=== PATIENT | female | born 1985 | race Caucasian/White ===

== ENCOUNTER 2017-06-02 16:12 | Emergency (ER) | payer BC ==
[2017-06-02 16:46] VITALS: BP 133/89
--- NOTE | 2017-06-02 16:47 | UC ---
Neck Pain HPI - HPI Summary HPI Summary: onset of pain in the right paraspinal muscles today after tunring her head sharply. Has had wry neck since then, with decreased ability to turn to the left. No paresthesias or weakness. Did have a headache earlier today, returning again now. She has used heat without much relief, no analgesics used. 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 No previous neck injury. Occasional sore right scapular area. - History of Current Complaint Chief Complaint: UCUpperExtremity Stated Complaint: NECK PAIN Time Seen by Provider: 06/02/17 16:44 Hx Obtained From: Patient Hx Last Menstrual Period: 05/29/2017 ?: No Onset/Duration Of Injury/Symptoms: Hours - 7 Timing: Constant Onset/Duration: Sudden Onset Severity: Moderate Character: Aching, Stiff Aggravating Factors: Position, Movement Alleviating Factors: Heat Associated Signs & Symptoms: Positive: Headache Related History: Other - has chills and arthralgias diffusely today. No contact with flu, has not had a flu shot. - Allergies/Home Medications Allergies/Adverse Reactions: Allergies Allergy/AdvReac Type Severity Reaction Status Date / Time Penicillins Allergy Mild Rash Verified 06/02/17 16:44 PMH/Surg Hx/FS Hx/Imm Hx Cardiovascular History: Other - pre-eclampsia in Other Cardiovascular History: pre-eclampsia in Other History Of: Negative For: HIV, Hepatitis B, Hepatitis C, Anticoagulant Therapy - Surgical History Surgical History: None - Family History Known Family History: Positive: Hypertension Negative: Cardiac Disease, Diabetes, Renal Disease - Social History Occupation: Employed Full-time Lives: With Family Alcohol Use: Rare Substance Use Type: None Smoking Status (MU): Never Smoked Tobacco - Immunization History Most Recent Influenza Vaccination: 04/21 Most Recent Tetanus Shot: n/a Most Recent Pneumonia Vaccination: n/a Review Of Systems Constitutional: Positive: Chills - onset today; decreased appetite., Fatigue Skin: Positive: Negative Eyes: Positive: Negative ENT: Positive: Other - no hx of thyroid enlargement. Respiratory: Positive: Negative Cardiovascular: Positive: Negative Gastrointestinal: Positive: Negative Genitourinary: Positive: Negative Musculoskeletal: Positive: Myalgia - cervical spine. Neurological: Positive: Headache All Other Systems Reviewed And Are Negative: Yes Physical Exam Triage Information Reviewed: Yes Appearance: Well-Appearing, Pain Distress - moderate., Obese Vital Signs: Initial Vital Signs Temp 99.1 F 06/02/17 16:38 Pulse 107 06/02/17 16:38 Resp 16 06/02/17 16:38 BP 133/89 06/02/17 16:38 Pulse Ox 99 06/02/17 16:38 Vital Signs Reviewed: Yes Eyes: Positive: Conjunctiva Clear ENT: Positive: Pharynx normal Neck: Positive: Tenderness @ - right paraspinal muscles. ROM in cervical spine decreased if FF to 45 degrees, rotation to the left limited to 45 degrees. Normal shoulder shrug., Other: - ? mild enlargment of the right lobe of the thyroid. Thyroid asymmetrical, non-tender. Respiratory: Positive: Lungs clear, Normal breath sounds Cardiovascular Exam: Normal Cardiovascular: Positive: RRR, No Murmur Musculoskeletal: Positive: ROM Limited @ - cervical spine, as above Neurological: Positive: Alert, Muscle Tone Normal, Other: - No pronator drift. 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 DTR's in UE 1+ Psychological Exam: Normal Skin Exam: Normal Neck Pain Course/Dx - Course Course Of Treatment: muscle relaxants for wry neck. Observe--possible onset of flu like symptoms. Follow up with PMD re possible thyroid nodule on the right. - Differential Dx/Diagnosis Differential Dx/HQI/PQRI: Dystonia, Sprain, Strain, Torticollis, Trauma Provider Diagnoses: acute right paracervical muscle strain. possible flu brewing (myalgias/chills). possible right thyroid lobe enlargement. Discharge - Discharge Plan Condition: Stable Disposition: HOME Prescriptions: Cyclobenzaprine TAB* [Flexeril 10 MG TAB*] 10 mg PO BID PRN #20 tab PRN Reason: Spasms - Neck Patient Education Materials: Spasmodic Torticollis (ED) Forms: *Work Release Additional Instructions: Use muscle relaxants as needed, being mindful that they can be sedating and cause fatigue. Use before bed is most helpful. Sleep with good neck support, and continue use of heat to the muscles of the neck. You might be on the verge of fly (muscle spasms and chills)--there is some influenza in the community. Follow up with your primary doctor for evaluation of possible enlargement of the right thyroid lobe. The usual assessment of this includes an ultrasound scan of the thyroid and a check of your thyroid hormone levels.
[2017-06-02] MEDS ORDERED: Ibuprofen TAB* 400 MG PO ONE (17:04)
== END 2017-06-02 17:25 | disposition home or self-care (01) ==
LOC: UCEAST 16:12
DX: S16.1XXA Strain of muscle, fascia and tendon at neck level, initial encounter (principal); X50.0XXA Overexertion from strenuous movement or load, initial encounter; Y93.9 Activity, unspecified; Y92.9 Unspecified place or not applicable; Y99.9 Unspecified external cause status
CPT/HCPCS: 99212; A9270-GY; G0463

== ENCOUNTER 2017-10-24 06:04 | Day surgery (SDC) | payer BC ==
[~2017-10-24 06:04] MED LIST: Buffered Lidocaine 0.9% SYRIN* 5 ML/SYR SYRINGE INTRADERM ONE; Dexamethasone IV* 4 MG/ML 1 ML (4 MG) IV SLOW PU ONE; Famotidine TAB* 20 MG PO ONE
[2017-10-24] MEDS ORDERED: Dexamethasone IV* 4 MG/ML 1 ML (4 MG) ONE (06:19)
[2017-10-24] MEDS ORDERED: Famotidine TAB* 20 MG ONE (06:19)
[2017-10-24] MEDS ORDERED: Buffered Lidocaine 0.9% SYRIN* 5 ML/SYR SYRINGE ONE (06:19)
[2017-10-24] MEDS ORDERED: Clindamycin 900 MG IVPREMIX(* 900 MG/50 ML SDV IV ONE (06:20)
[2017-10-24] MEDS ORDERED: Bupivacaine 0.25% SDV* 30 ML ONE (07:01)
[2017-10-24] MEDS ORDERED: Midazolam* 1 MG/ML 5 ML VIAL (5 MG) ONE (07:11)
[2017-10-24] MEDS ORDERED: fentaNYL* 50 MCG/ML 5 ML VIAL (250 MCG VIAL) ONE (07:11)
[2017-10-24] MEDS ORDERED: Atracurium* 10 MG/ML 10 ML VIAL ONE (07:11)
[2017-10-24] MEDS ORDERED: Ketorolac INJ* 30 MG/ML 1 ML VIAL ONE (07:16)
[2017-10-24] MEDS ORDERED: Ondansetron INJ* 2 MG/ML VIAL ONE (07:16)
[2017-10-24] MEDS ORDERED: Propofol* 10 MG/ML 20 ML BTL IV PUSH ONE (07:16)
[2017-10-24] MEDS ORDERED: oxyCODONE/Acetamin 5/325 MG* TAB PO PRN (07:58)
[2017-10-24] MEDS ORDERED: DiMENhydriNATE IV* 50 MG/ML VIAL IV PUSH PRN (07:58)
[2017-10-24] MEDS ORDERED: Naloxone* 0.4 MG/ML 1 ML VIAL IV PRN (07:58)
[2017-10-24] MEDS ORDERED: Ondansetron INJ* 2 MG/ML VIAL IV PRN (07:58)
[2017-10-24] MEDS ORDERED: HYDROmorphone INJ* 1 MG/ML CARPUJECT SYRINGE IV PRN (07:58)
[2017-10-24] MEDS ORDERED: Scopolamine 1.5 mg* PATCH TRANSDERM PRN (07:58)
[2017-10-24] MEDS ORDERED: fentaNYL* 50 MCG/ML 2 ML VIAL (100 MCG VIAL) IV PRN (07:58)
[2017-10-24] MEDS ORDERED: EPHEDrine (Pressors)* 50 MG/ML VIAL ONE (08:01)
[2017-10-24] MEDS ORDERED: Phenylephrine INJ* 10 MG/ML 1 ML VIAL (10 MG) ONE (08:06)
--- NOTE | 2017-10-24 08:47 | BRIEFOPN ---
Brief Operative Note - Surgery Procedures: Procedures Pre-OP Diagnoses: Abdominal pain Post-op Diagnosis: same Procedure: Diagnostic laparoscopy, OLI, appendectomy Surgeon: Neena Asst: JERED Teague Anethesia: WINSTON Foley EBL: minimal IVF: minimal crystalloid Specimen: appendix Drains: none Findings adhesions, periappendiceal lymphadenopathy Complications: None
[2017-10-24] MEDS ORDERED: oxyCODONE/Acetamin 5/325 MG* TAB ONE (09:33)
[2017-10-24 10:36] VITALS: BP 115/77
--- NOTE | 2017-10-24 12:34 | OP ---
CC: Dr. Paulo Osei; [facility] OPERATIVE REPORT: DATE OF OPERATION: 10/24/17 DATE OF : 81 SURGEON: Wilmer Chaudhary MD DRYING MACHINE OPERATOR: Mounika Teague NP ANESTHESIOLOGIST: Jovi Foley MD ANESTHESIA: General anesthesia. PRE-OP DIAGNOSIS: Abdominal pain. POST-OP DIAGNOSIS: Abdominal pain. OPERATIVE PROCEDURE: Diagnostic laparoscopy, lysis of adhesions, and appendectomy. ESTIMATED BLOOD LOSS: Minimum blood loss. FLUIDS: Minimal crystalloid fluid given. SPECIMENS: Appendix. DRAINS: None. FINDINGS: Adhesions in the pelvis and periappendiceal lymphadenopathy. COMPLICATIONS: None. DESCRIPTION OF PROCEDURE: The patient was identified in the preoperative area. Consent was signed. She was marked and taken to the operating room and placed on the operating table in supine position. Preoperative antibiotics were given. Sequential devices were placed on bilateral lower extremities. General anesthesia was induced. The patient's abdomen was prepped and draped in a standard surgical fashion. Time-out was performed. Folds of the umbilicus were elevated anteriorly and a Veress needle was attempted to be inserted into the abdominal cavity. We were unable to do this and ended up doing a cut-down procedure. The Veres s needle just did not seem to enter into the abdomen into the preperitoneal space that did not insufflate. Cut-down procedure was performed infraumbilically, deepened down to the anterior fascia, which was incised and then through the peritoneum. A 5-mm trocar was inserted into the abdomen, was allowed to insufflate to a pressure of 15 mmHg. The patient tolerated the insufflation well. Lapar oscope was inserted through this. There was no evidence of injury from the trocar insertion or from the Veress needle attempt. So, there was no evidence of violation into the peritoneal cavity. A 5-mm trocar was then placed in the left lower quadrant. Camera was shifted over to this and the umbilica l incision was upsized to a 12-mm trocar. Additional 5-mm trocar was then placed in the suprapubic a tarun. Review of the abdomen showed no free fluid, small bowel appeared intact. The patient was placed in a right side up. The cecum was identified. There were adhesions to the mid portion of the cecum to t he anterior abdominal wall. Some of these were lysed with scissors. We then identified the terminal ileum and ran the small bowel retrograde for approximately 3 feet. There was no evidence Meckel's d iverticulum or any signs of Crohn's. The appendix was identified during this time and it was elongat ed and adhered to the retroperitoneum. The patient was placed in a Trendelenburg and reviewed both left and right ovaries. There were adhesi ons to the sigmoid colon to the ovary and to the fimbriae and to the uterus. These were taken down s harply with scissors. Ovaries appeared intact without lesion as did the uterus. There was no eviden ce of diverticula in the short segment of sigmoid colon that we could see. Attention was then turned towards the appendix. Sharp dissection was carried out of the lateral abdo haresh wall and also retroperitoneum and so the appendix could be brought up into the midline. A wind ow was made at the base of the appendix and a 45-mm hood GI stapler device was fired across this at th e base of the appendix to healthy tissue. I did not need a clip at the distal end of the staple just before I cut the staple line. The mesentery was taken with cautery until we were down just to the main portion of the appendiceal a rtery. This was taken with the 45-mm elise GI stapling device. Appendix was placed in endoscopic retr ieval bag and brought out through the umbilical port site. Review of the abdomen showed no bleeding, no enteric contents. We then put the patient back to neutral position and closed the anterior fasci a at the umbilical port site with a Weck closure device using a 0 Polysorb suture. The abdomen was a llowed to collapse. Trocars removed under direct vision and all 3 skin incisions were reapproximated with 4-0 Monocryl subcuticular sutures followed by Steri-Strips and sterile dressing. The patient t olerated the procedure well, was awoken up in the OR, and transferred to the PACU in stable condition . [id number]/[facility] #: [id number]
== END 2017-10-24 10:39 | disposition home or self-care (01) ==
LOC: OR 06:04
PROVIDERS: ATTEND Surgery
DX: K35.80 Unspecified acute appendicitis (principal); K66.0 Peritoneal adhesions (postprocedural) (postinfection); E03.9 Hypothyroidism, unspecified; E66.9 Obesity, unspecified
CPT/HCPCS: 81025; 88304; A9270-GY; C1776; J1100; J1885; J2250; J2405; J2704; J3010

== ENCOUNTER 2017-11-02 11:20 | Emergency (ER) | payer BC ==
--- OUTSIDE RECORDS SUMMARY | 2017-11-02 11:52 | XMS REPORT ---
:1985 External Reference #:[id number] Author Organization indico Address [address] [facility] [address] [place] [address] Phone [phone] Care Team Providers Name Role Phone Paulo Osei MD Primary Care Physician Unavailable Payers Type Date Identification Numbers Payment Provider Subscriber Commercial Policy Number: [id number] [employer] Julio Pena PayID: [id number] [address] [address] [place] [address] Problems Description No Information Social History Type Date Description Comments Marital Status Lives With Family Occupation Currently Working ETOH Use Occasionally consumes alcohol Smoking Patient has never smoked Recreational Drug Use Denies Drug Use Exercise Type/Frequency Does not exercise Allergies, Adverse Reactions, Alerts Date Description Reaction Status Severity Comments 10/17/2017 Penicillin active Medications Medication Date Status Form Strength Qnty SIG Indications Ordering Provider Levothyroxine Active Tablets 25mcg 1 by Unknown Sodium 00 mouth every day Zantac 150 Active Tablets 150mg 1 by Unknown Maximum Strength 00 mouth twice a day Vital Signs Date Vital Result Comment 11/01/2017 Heart Rate 98 /min Respiratory Rate 16 /min Body Temperature 99.3 F 10/18/2017 Height 65 inches 5'5" Weight 202.00 lb Heart Rate 68 /min BP Systolic 120 mmHg BP Diastolic 80 mmHg Respiratory Rate 16 /min Body Temperature 98.1 F BMI (Body Mass Index) 33.6 kg/m2 Results Test Date Test Result H/L Range Note Laboratory test 10/24/2017 Surgical Pathology SEE RESULT BELOW 1 finding 1 SEE RESULT BELOW Name: KATHY PENA : [address]: Wilmer Chaudhary MD Acct: [id number] Unit: [id number] AGE: 32 Location: OR Re10/24/17 SEX: F Status: DEP [facility] SPEC: [id number] LILIBETH: 10/24/[address]: Wilmer Chaudhary MD REQ: [id number] RECD: 10/24/17 STATUS: SOUT _ ORDERED: LEVEL 3 FINAL DIAGNOSIS Appendix, appendectomy: -- Acute appendicitis and bita-appendicitis. PRE-OPERATIVE DIAGNOSIS Other specified diseases of appendix. GROSS DESCRIPTION The specimen is received in formalin labeled, Appendix, and consists of a 9.1 x 0.7 cm vermiform appendix with abundant attached mesoappendix. The serosa is predominantly smooth hood-pink with a few focal fibromembranous adhesions. The lumen measures up to 0.4 cm and contains a small amount of fecal material and hemorrhagic debris. The mucosa is glistening hood-pink with rare focal hemorrhage and the wall thickness averages 0.1 cm. Car Blocker sections, one cassette. Signed (signature on file) Ann Abdul MD [address] [facility] OF REPORT DEPARTMENT OF PATHOLOGY, [address] [place] [address] Julio Batres M.D. Director [facility] # [id number] Procedures Date CPT Code Description Status 10/24/2017 42624 Laparoscopy, Surgical, Appendectomy Completed 10/24/2017 21272 Laparoscopy, Surgical, Appendectomy Completed Encounters Type Date Location Provider CPT E/M Dx Office Visit 10/18/2017 11:45a [facility] [place] [address] K38.8 [facility] Plan of Care No Information Available
--- OUTSIDE RECORDS SUMMARY | 2017-11-02 11:53 | XMS REPORT ---
:1985 External Reference #:[id number] Author Organization [facility] Address [address] [place] [address] Phone [phone] Care Team Providers Name Role Phone Paulo Osei MD Care Team Information Experience Design Director Unavailable Paulo Osei MD Primary Care Physician Unavailable Payers Type Date Identification Numbers Payment Provider Subscriber Commercial Effective: Policy Number: BC/BS Of ABDOULAYELatesha Pena 2014 [id number] PayID: [id number] [address] [address] [place] [address] Problems Date Description Provider Status Onset: 11/29/2011 Common cold Dc Pruitt M.D. Active Family History Date Family Member(s) Problem(s) Comments General Unremarkable, Parents, Grandparents And Sibs ALL A+W Social History Type Date Description Comments Smoking Patient has never smoked Allergies, Adverse Reactions, Alerts Date Description Reaction Status Severity Comments 05/16/2002 Penicillin active Medications Medication Date Status Form Strength Qnty SIG Indications Ordering Provider Levothyroxine 06/07 Active Tablets 25mcg 30tabs 1 by mouth Aurea C. 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 Juma Pruitt M.D. 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 M.D. 12/25 unable to /2006 attend school. may return tomorrow if better. Entex Pse 06/08 Hx 30units 1PO bid Miguel T. prn Head Rodolfo, - Congestion M.D. 08/11 Benzamycin 06/25 Hx 46gm apply to Lu Topical Gel /2002 area bid Kelle, - after GRINDING OPERATOR 08/11 washing Zithromax 08/18 Hx 250mg 6units 2 Tabs Day Miguel T. /2002 1 Rodolfo, - M.D. 08/11 Tab qd Days 2 Thru 5 Robitussin ac 08/18 Hx 4Oz 1-2 TSP PO Paulo F. Q4H prn Farnaz - M.DLilliana 08/11 Humberto Goins 06/24 Hx 100mg 30units 1-2 PO tid prn Cough [place], - Afnp-C 07/04 Physical Therapy 05/16 Hx Treatment Miguel T. And Rodolfo, - Evaluation M.D. 08/18 LT Knee Strain Cyclobenzaprine Hx Tablets 10mg 1 by mouth Unknown HCL /0000 three - times a 10/09 day needed Immunizations CPT Code Status Date Vaccine Lot # [id number] Given 06/05/2017 Influenza vac quadrivalent preservative free 3yrs [id number] and up [address] Given 01/29/2003 MMR Virus Immunization 36301 Given 11/15/1999 Hepatitis B Immunization, [place]-19 Years 90726 Given 06/21/1999 Hepatitis B Immunization, -19 Years 40051 Given 05/17/1999 Hepatitis B Immunization, [place]-19 Years 68249 Given 05/17/1999 Td Immunization, For Use In Individuals 7 Years Or Older 20663 Given 12/07/1988 Oral Poliovirus Immunization 21796 Given 12/07/1988 DTP Immunization 03256 Given 04/08/1986 MMR Virus Immunization Vital Signs Date Vital Result Comment 10/10/2017 BP Systolic 120 mmHg BP Diastolic 80 mmHg Heart Rate 72 /min Body Temperature 98.3 F Height 65 inches 5'5" Weight 211.00 lb BMI (Body Mass Index) 35.1 kg/m2 06/05/2017 BP Systolic 120 mmHg BP Diastolic 80 mmHg Heart Rate 80 /min Body Temperature 98.6 F Height 65 inches 5'5" Weight 213.00 lb BMI (Body Mass Index) 35.4 kg/m2 08/25/2014 BP Systolic 120 mmHg BP Diastolic 80 mmHg Heart Rate 68 /min Body Temperature 98.3 F Respiratory Rate 18 /min Height 65 inches 5'5" Weight 208.00 lb BMI (Body Mass Index) 34.6 kg/m2 06/26/2012 BP Systolic 110 mmHg BP Diastolic 72 mmHg Heart Rate 72 /min Body Temperature 97.9 F Height 65 inches 5'5" Weight 207.00 lb BMI (Body Mass Index) 34.4 kg/m2 11/29/2011 BP Systolic 120 mmHg BP Diastolic 80 mmHg Heart Rate 72 /min Body Temperature 98.1 F Respiratory Rate 16 /min O2 % BldC Oximetry 98 % Height 65 inches 5'5" Weight 193.00 lb BMI (Body Mass Index) 32.1 kg/m2 06/06/2011 BP Systolic 120 mmHg BP Diastolic 76 mmHg Heart Rate 90 /min Body Temperature 99.8 F Height 65 inches 5'5" Weight 197.00 lb BMI (Body Mass Index) 32.8 kg/m2 07/19/2010 BP Systolic 118 mmHg BP Diastolic 82 mmHg Heart Rate 74 /min Body Temperature 97.4 F Respiratory Rate 16 /min Height 65 inches 5'5" Weight 198.00 lb BMI (Body Mass Index) 32.9 kg/m2 05/31/2010 BP Systolic 120 mmHg BP Diastolic 80 mmHg Heart Rate 60 /min Body Temperature 98.1 F Height 65 inches 5'5" Weight 193.00 lb BMI (Body Mass Index) 32.1 kg/m2 12/25/2006 BP Systolic 98 mmHg BP Diastolic 66 mmHg Heart Rate 66 /min Body Temperature 98.5 F Weight 158.00 lb 09/07/2006 BP Systolic 110 mmHg BP Diastolic 78 mmHg Heart Rate 82 /min Respiratory Rate 15 /min 08/06/2006 BP Systolic 108 mmHg BP Diastolic 72 mmHg Heart Rate 96 /min Body Temperature 99.9 F Weight 163.00 lb 12/15/2005 BP Systolic 118 mmHg BP Diastolic 70 mmHg Heart Rate 72 /min Weight 165.00 lb 08/11/2004 BP Systolic 120 mmHg BP Diastolic 68 mmHg Heart Rate 76 /min Weight 168.00 lb 06/08/2004 BP Systolic 120 mmHg BP Diastolic 70 mmHg Heart Rate 66 /min Body Temperature 96.7 F Weight 170.00 lb 06/25/2003 BP Systolic 120 mmHg BP Diastolic 80 mmHg Heart Rate 68 /min Weight 158.00 lb 01/29/2003 BP Systolic 138 mmHg BP Diastolic 74 mmHg Heart Rate 72 /min Body Temperature 99.6 F Height 65 inches 5'5" Weight 150.00 lb BMI (Body Mass Index) 25.0 kg/m2 08/18/2002 BP Systolic 92 mmHg BP Diastolic 60 mmHg Body Temperature 97.2 F Weight 150.00 lb Weight Percentile 82nd 06/24/2002 BP Systolic 102 mmHg BP Diastolic 70 mmHg Body Temperature 98.2 F Weight 157.00 lb Weight Percentile 87th 05/16/2002 BP Systolic 110 mmHg BP Diastolic 80 mmHg Weight 159.00 lb Weight Percentile 88th 12/11/2000 Weight 140.00 lb 02/09/2000 BP Systolic 110 mmHg BP Diastolic 70 mmHg Heart Rate 88 /min Height 64.75 inches 5'4.75" Weight 133.00 lb BMI (Body Mass Index) 22.8 kg/m2 Height Percentile 61 % Results Test Date Test Result H/L Range Note Anti-Thyroid Antibodies 10/02/2017 Thyroid Peroxidase (Tpo) 530 IU/mL High 0-34 1 Screen Ab Thyroglobulin Antibody 23.4 IU/mL High 0.0-0.9 1, 2 Laboratory test finding 10/02/2017 TSH 3.84 mIU/L 0.50-6.00 Laboratory test finding 07/04/2017 TSH 1.97 mIU/L 0.50-6.00 Laboratory test finding 06/05/2017 Free T4 1.09 ng/dL 0.75-1.54 TSH 7.89 mIU/L High 0.50-6.00 3 Influenza A&B-fma 08/25/2014 Influenza A NEGATIVE Influenza B NEGATIVE Urine Culture And 10/29/2013 Urine Culture (SEE NOTE) 4 Sensitivities Laboratory test finding 08/01/2012 Throat Beta Strep Culture (SEE NOTE) 5 Ua - Micro (Fma) 12/25/2006 Appearance CLEAR Color YELLOW Glucose NEGATIVE Bilirubin NEGATIVE Ketones TRACE SP Grav 1.020 Blood NEGATIVE LMP: 11/30/06 PH 5.0 Protein NEGATIVE Urobil 0.2 Nitrite NEGATIVE Leukocytes (Fma/CMC/Centrex) 1+ Hyaline - /Lpf Granular - /Lpf WBC (Fma,Centrex) 25-30 RBC 0-2 Mucus SMALL AMOUNT /Lpf Epith OCC /Lpf Bacteria 1+ /Hpf Amorphous - /Lpf Crystals, Fluid (Fma/CMC/CTX) - Z#Comments - Complete Blood Count 08/06/2006 WBC 9.1 x10\\S\\3/uL 3.6-9.6 6 Gran# 7.9 x10\\S\\3/uL High 1.5-7.2 6 Gran% 86.3 % High 42.2-75.2 6 HCT 40 % 36-50 6 HGB 13.5 g/dL 12.1-17.2 6 Lymph# 0.7 x10\\S\\3/uL 0.7-4.9 6 Lymph% 7.6 % Low 20.5-51.1 6 MCH 29.7 pg 27.6-33.3 6 MCV 88.0 fL 82.2-97.4 6 MCHC 33.8 g/dL 33.0-35.5 6 Mo# 0.6 x10\\S\\3/uL 0.1-0.9 6 Mo% 6.1 % 1.7-9.3 6 MPV 9.2 fL 7.4-10.4 6 PLT 154 x10\\S\\3/uL 150-400 6 RBC 4.56 x10\\S\\6/uL 3.90-5.70 6 RDW 12.5 % 11.6-13.7 6 Comprehensive Metabolic Prof 08/06/2006 Albumin 4.5 g/dL 3.8-5.5 6 Alk. Phos. 42 U/L 30-110 6 Alt (SGPT) 15 U/L 7-35 6 Ast (Sgot) 17 U/L 5-34 6 BUN 11 mg/dL 6-26 6 Calcium 9.3 mg/dL 8.6-10.2 6 Chloride 96 mEq/L 94-112 6 Creatinine 1.0 mg/dL 0.6-1.4 6 Carbon Dioxide 24 mEq/L 21-32 6 Glucose 106 mg/dL High 70-105 6 Sodium 141 mEq/L 134-149 6 Total Bilirubin 1.5 mg/dL High 0.2-1.3 6, 7 Total Protein 7.4 g/dL 6.3-8.1 6 Potassium 3.4 mEq/L Low 3.6-5.5 6, 8 Globulin 2.9 g/dL 2.0-4.8 6 A/G Ratio 1.6 Calc 0.6-2.2 6 BUN/Creat Ratio 11.6 Calc 8.0-36.0 6 Total And Direct Bili 08/06/2006 Direct Bilirubin 0.6 mg/dL 0.0-0.6 6 Indirect Bilirubin 0.89 0.10-1.00 6 Laboratory test 07/15/2005 Misc GLUCOSE,CHOLESTEROL See Image finding Report Laboratory test 05/16/2003 Throat - Beta NEGATIVE Final finding Strep Ua - Non Micro 01/29/2003 Appearance CLEAR LT YELLOW ([facility]) Glucose NEGATIVE Bilirubin NEGATIVE Ketones NEGATIVE SP Grav 1.010 Blood NEGATIVE PH 7.0 Protein NEGATIVE Urobil 0.2 Nitrite NEGATIVE Leukocytes NEGATIVE Laboratory test finding 01/29/2003 Comments LMP: 01-03-03 Ua - Non Micro (Fma New) 02/11/2000 Appearance CLEAR YELLOW Glucose - Bilirubin - Ketones - SP Grav >=1.030 Blood TRACE-INTACT PH 5.0 Protein - Urobil 0.2 Nitrite - Leukocytes - 1 1 sst 2 Thyroglobulin Antibody measured by Jeramie [place] Methodology 3 RESULTS VERIFIED BY REPEAT ANALYSIS 4 RUN DATE: 10/31/13 [facility] LAB LIVE PAGE 1 RUN TIME: [address] [place], [place] [address] Specimen Inquiry Name: KATHY PENA : [address]: Gertrude Green NP Acct: [id number] Unit: [id number] AGE: 28 Location: [facility] Re10/29/13 SEX: F Status: REG REF SPEC: [id number] LILIBETH: 10/29/13-1440 [facility] DR: Gertrude Green NP REQ: [id number] RECD: 10/29/13 STATUS: GREGORY BABIN DR: Dc Pruitt MD _ SOURCE: URINE SPDESC: ORDERED: Urine Culture Procedure Result Verified Site Urine Culture Final 10/31/13- 1055 ML No Growth Day 2 (<1,000 CFU/mL) END OF REPORT * ML=Testing performed at Main Lab DEPARTMENT OF PATHOLOGY, [facility] [place], [place] [address] Julio Batres M.D. Director [facility] Permit #[id number] RUN DATE: 08/04/12 [facility] LAB LIVE PAGE 1 RUN TIME: [address] [facility] [address] [place], [place] [address] Specimen Inquiry Name: KATHY PENA : [address]: Valencia Tee MD Acct: [id number] Unit: [id number] AGE: 26 Location: [facility] Re08/01/12 SEX: F Status: DEP ER SPEC: [id number] LILIBETH: 08/01/12-1906 [facility] DR: Valencia Tee MD REQ: [id number] RECD: 08/02/12 STATUS: GREGORY BABIN DR: [facility] Dc A Darlow MD _ SOURCE: THROAT SPDESC: ORDERED: Throat Beta Str Procedure Result Verified Site Throat Beta Strep Culture Final 08/04/12- 0754 ML Negative For Group A Beta Streptococcus END OF REPORT * ML=Testing performed at Main Lab DEPARTMENT OF PATHOLOGY, [address] [place] [address] Julio Batres M.D. Director [facility] Permit #[id number] FASTING 7 RESULT VERIFIED BY REPEAT ANALYSIS 8 RESULT VERIFIED BY REPEAT ANALYSIS Procedures Date CPT Code Description Status 11/29/2011 20658 Pulse Oximetry Completed Encounters Type Date Location Provider CPT E/M Dx Office Visit 06/05/2017 6:15p Main Office Aurea Boucher, JERED 53818 D44.0 S16.1xxA Z23 Office Visit 08/25/2014 11:40a [facility] Office Constantino Aguilar M.D. 35677 465.9 Office Visit 06/26/2012 2:45p Main Office Lu Nina, TRES 29551 728.71 Office Visit 11/29/2011 9:00a [facility] Dc Pruitt M.D. 03716 460 Office Visit 06/06/2011 3:45p [facility] Pola Dan 12443 530.81 465.9 Office Visit 07/19/2010 9:20a [facility] Dc Pruitt M.D. 40761 719.43 Office Visit 05/31/2010 10:30a [facility] [place] 66887 719.43 Office Visit 12/25/2006 1:40p Main Office Maddie Roth JERED Chapa 57403 599.0 Office Visit 09/07/2006 11:00a Main Office Lu Nina [facility] 39385 V70.3 Office Visit 08/06/2006 12:20p Main Office Miguel Reynolds M.D. 47792 780.6 724.5 791.4 Office Visit 12/15/2005 10:30a Main Office Lu Nina [facility] [address]2734 V70.0 V70.3 Office Visit 08/11/2004 4:20p [facility] Miguel Reynolds M.D. 83822 239.8 Office Visit 06/25/2003 9:00a [facility] Lu Nina [facility] 72627 706.1 Office Visit 01/29/2003 2:30p [facility] Lu Nina GRINDING OPERATOR 52157 V70.0 V06.4 Office Visit 08/18/2002 2:00p [facility] Paulo Osei M.D. 91813 466.0 461.0 Office Visit 06/24/2002 9:30a [facility] Pol[place] Dan 53197 465.9 Office Visit 03/28/2001 9:40a [facility] Miguel Reynolds M.D. 45444 Office Visit 12/11/2000 10:30a Main Office Pola Dan [address] Plan of Care 10/10/2017 - Aurea Boucher, NPR10.30 Lower abdominal pain, unspecifiedComments:I will refer you to a general surgeon to determine if you will need more workup.
--- OUTSIDE RECORDS SUMMARY | 2017-11-02 11:53 | XMS REPORT ---
:1985 External Reference #:[id number] Author Organization [facility] Address [address] [address] Phone [phone] Care Team Providers Name Role Phone Paulo Osei MD Primary Care Physician Unavailable Payers Type Date Identification Numbers Payment Provider Subscriber Commercial Policy Number: [id number] [employer] Julio Pena PayID: [id number] [address] [address] [place] [address] Problems Description No Information Social History Type Date Description Comments Smoking Patient has never smoked Allergies, Adverse Reactions, Alerts Date Description Reaction Status Severity Comments 10/17/2017 Penicillin active Medications Medication Date Status Form Strength Qnty SIG Indications Ordering Provider Levothyroxine 00 Active Tablets 25mcg 1 by Unknown Sodium 00 mouth every day Zantac 150 0000 Active Tablets 150mg 1 by Unknown Maximum Strength 00 mouth twice a day Vital Signs Date Vital Result Comment 10/18/2017 Height 65 inches 5'5" Weight 202.00 lb Heart Rate 68 /min BP Systolic 120 mmHg BP Diastolic 80 mmHg Respiratory Rate 16 /min Body Temperature 98.1 F BMI (Body Mass Index) 33.6 kg/m2 Results Description No Information Procedures Description No Information Plan of Care Future Appointment(s):11/01/2017 1:15 pm - TAHIR Kwan at [facility]10/24/2017 9:00 am - Mounika Teague NP at [facility]10/24/2017 9:00 am - Wilmer Chaudhary MD at [facility]10/18/2017 - Wilmer Chaudhary MDK38.8 Other specified diseases of appendixFollow up:operating room
[2017-11-02 11:58] VITALS: BP 119/81
--- NOTE | 2017-11-02 12:11 | ED ---
Throat Pain/Nasal Congestion - HPI Summary HPI Summary: 32-year-old female presents with sinus congestion the past 4 days. She admits to sinus pressure and fullness. She denies any change in hearing. She admits to headache. She's been using xcxs-zjf-dnzsend decongestants with minimal relief. She admits to postnasal drip. She admits to a sore throat from postnasal drip. She notes a cough. She denies any fevers. Denies any chest pain or shortness of breath. She had surgery for appendicitis a week ago. patient is allergic to PCN. - History of Current Complaint Chief Complaint: UCRespiratory Time Seen by Provider: 11/02/17 12:00 - Allergies/Home Medications Allergies/Adverse Reactions: Allergies Allergy/AdvReac Type Severity Reaction Status Date / Time Penicillins Allergy Mild Rash Verified 10/24/17 06:37 Home Medications: Home Medications Phenylephrine/Dm/Acetaminop/GG [Severe Cold Multi-Symptom Cplt] 1 each PO Q6HR 11/02/17 [History Confirmed 11/02/17] PMH/Surg Hx/FS Hx/Imm Hx Endocrine/Hematology History: Reports: Hx Thyroid Disease - hypo Denies: Hx Anticoagulant Therapy, Hx Diabetes Cardiovascular History: Denies: Hx Congestive Heart Failure, Hx Deep Vein Thrombosis, Hx Hypertension , Hx Myocardial Infarction, Hx Pacemaker/ICD Respiratory History: Denies: Hx Asthma, Hx Chronic Obstructive Pulmonary Disease (COPD), Hx Lung Cancer GI History: Reports: Hx Gastroesophageal Reflux Disease Denies: Hx Gall Bladder Disease, Hx Gastrointestinal Bleed, Hx Ulcer, Hx Urosepsis History: Denies: Hx Kidney Stones, Hx Renal Disease Sensory History: Denies: Hx Contacts or Glasses, Hx Hearing Aid Opthamlomology History: Denies: Hx Contacts or Glasses Neurological History: Denies: Hx Dementia, Hx Migraine, Hx Seizures, Hx Transient Ischemic Attacks (TIA) Psychiatric History: Denies: Hx Anxiety, Hx Depression, Hx Schizophrenia, Hx Bipolar Disorder - Cancer History Hx Chemotherapy: No - Surgical History Surgery Procedure, Year, and Place: appy 10/24/17 Infectious Disease History: No Infectious Disease History: Denies: Hx Hepatitis, Hx Human Immunodeficiency Virus (HIV), Traveled Outside the [place] in Last 30 Days - Family History Known Family History: Positive: Hypertension Negative: Cardiac Disease, Diabetes, Renal Disease - Social History Alcohol Use: Occasionally Substance Use Type: Reports: None Smoking Status (MU): Never Smoked Tobacco Review of Systems Negative: Fever Positive: Sore Throat, Nasal Discharge Negative: Chest Pain Positive: Cough. Negative: Shortness Of Breath All Other Systems Reviewed And Are Negative: Yes Physical Exam Triage Information Reviewed: Yes Vital Signs On Initial Exam: Initial Vitals Temp Pulse Resp BP Pulse Ox 97.7 F 94 18 119/81 99 11/02/17 11:53 11/02/17 11:53 11/02/17 11:53 11/02/17 11:53 11/02/17 11:53 Vital Signs Reviewed: Yes Appearance: Positive: Well-Appearing Skin: Positive: Warm, Dry Head/Face: Positive: Normal Head/Face Inspection Eyes: Positive: Normal, EOMI, GIOVANNY, Conjunctiva Clear ENT: Positive: Pharynx normal, Nasal congestion, TMs normal, Sinus tenderness Neck: Positive: Supple, Nontender, No Lymphadenopathy Respiratory/Lung Sounds: Positive: Clear to Auscultation, Breath Sounds Present Cardiovascular: Positive: Normal, RRR Abdomen Description: Positive: Nontender, Soft Bowel Sounds: Positive: Present Musculoskeletal: Positive: Normal Neurological: Positive: Normal Psychiatric: Positive: Normal Diagnostics - Vital Signs Vital Signs Temp Pulse Resp BP Pulse Ox 11/02/17 11:53 97.7 F 94 18 119/81 99 - Laboratory Lab Statement: Any lab studies that have been ordered have been reviewed, and results considered in the medical decision making process. EENT Course/Dx - Course Course Of Treatment: 32-year-old female presents with sinus congestion the past 4 days. She admits to sinus pressure and fullness. She denies any change in hearing. She admits to headache. She's been using cyxe-qap-lnchrya decongestants with minimal relief. She admits to postnasal drip. She admits to a sore throat from postnasal drip. She notes a cough. She denies any fevers. Denies any chest pain or shortness of breath. She had surgery for appendicitis a week ago. On exam lungs clear to auscultation. Nasal congestion present. Some tenderness with palpation of sinuses. Explain likely still viral this point but if symptoms persist after 3 more days start on Antibiotic. Will start Flonase. Patient understands agrees with plan - Differential Diagnoses Differential Diagnoses: Sinusitis, URI/Bronchitis, Other - rhinosinusitis - Diagnoses Provider Diagnoses: Acute sinusitis Discharge - Sign-Out/Discharge Documenting (check all that apply): Discharge/Admit/Transfer - Discharge Plan Condition: Good Disposition: HOME Prescriptions: Azithromycin TAB* [Zithromax TAB (Z-DEVIN) 250 mg #6 tabs] 2 tab PO .TODAY, THEN 1 DAILY #1 devin Fluticasone NASAL SPRAY 50MCG* [Flonase NASAL SPRAY 50MCG*] 2 spray BOTH NARES DAILY #1 btl Patient Education Materials: Rhinosinusitis (ED) Referrals: Paulo Osei MD [Primary Care Provider] - Additional Instructions: Use saline spray in nose as much as needed Use intranasal steroid one spray each nostril twice a day Take antibiotic in 3 days if no improvement, take two tablets first day and one tablet for 4 more days Take sudafed for nasal congestion Take Tylenol or ibuprofen for headache every 6 hours Return to ED if develop any new or worsening symptoms - Billing Disposition and Condition Condition: GOOD Disposition: HOME
== END 2017-11-02 12:15 | disposition home or self-care (01) ==
LOC: UCEAST 11:20
DX: J01.90 Acute sinusitis, unspecified (principal); E03.9 Hypothyroidism, unspecified; K21.9 Gastro-esophageal reflux disease without esophagitis; Z88.0 Allergy status to penicillin
CPT/HCPCS: 99212; G0463

== ENCOUNTER 2018-03-14 08:12 | Emergency (ER) | payer BC ==
[2018-03-14 08:18] VITALS: BP 120/80
--- NOTE | 2018-03-14 08:39 | UC ---
UC General HPI - HPI Summary HPI Summary: This patient is a 32 year old F presenting to [facility] with a chief complaint of chills and diaphoresis since 3 days ago. The patient rates the pain 3/10 in severity. Patient reports stiff back pain, stiff neck pain, fatigue, recent fever, and nausea. Patient denies sore throat, ear pain, dysuria, rashes, cough , headache, sinus pain, sinus congestion, abdominal pain, vomiting, and diarrhea. Her LNMP was 03/01/2018. - History of Current Complaint Chief Complaint: UCGeneralIllness Stated Complaint: CHILLS Time Seen by Provider: 03/14/18 08:22 Hx Obtained From: Patient Hx Last Menstrual Period: 03/01/18 Onset/Duration: Sudden Onset, Lasting Days - 3 days ago, Still Present Onset Severity: Moderate Current Severity: Moderate Pain Intensity: 3 Associated Signs & Symptoms: Positive: Abdominal Pain - Denies, Back Pain - stiff back pain, Cough - Denies, Diarrhea - Denies, Dysuria - Denies, Fever - 3 days ago, Headache - Denies, Nausea, Vomiting - Denies, Other - Reports stiff neck pain, fatigue. Denies sore throat, ear pain, rashes, sinus pain, sinus congestion - Allergy/Home Medications Allergies/Adverse Reactions: Allergies Allergy/AdvReac Type Severity Reaction Status Date / Time Penicillins Allergy Mild Rash Verified 03/14/18 08:18 PMH/Surg Hx/FS Hx/Imm Hx Endocrine History: Diabetes - Denies Cardiovascular History: Cardiac Disease - Denies Other History Of: Negative For: HIV, Hepatitis B, Hepatitis C, Anticoagulant Therapy - Surgical History Surgical History: Yes Surgery Procedure, Year, and Place: app 10/24/17 - Family History Known Family History: Positive: Hypertension Negative: Cardiac Disease, Diabetes, Renal Disease - Social History Occupation: Employed Full-time Alcohol Use: Rare Substance Use Type: None Smoking Status (MU): Never Smoked Tobacco - Immunization History Most Recent Influenza Vaccination: 04/21 Most Recent Tetanus Shot: n/a Most Recent Pneumonia Vaccination: n/a Review of Systems Constitutional: Fever, Chills, Fatigue, Other - Diaphoresis Skin: Rash - Denies ENT: Sore Throat - Denies, Ear Ache - Denies, Other - Stiff neck pain Respiratory: Cough - Denies, Other - Denies sinus pain, denies sinus congestion Gastrointestinal: Abdominal Pain - Denies, Vomiting - Denies, Diarrhea - Denies , Nausea Genitourinary: Dysuria - Denies Musculoskeletal: Other: - Stiff back pain Neurological: Headache - Denies All Other Systems Reviewed And Are Negative: Yes Physical Exam - Summary Physical Exam Summary: VITAL SIGNS: Reviewed. GENERAL: Patient is a well-developed and nourished FEMALE who is lying comfortable in the stretcher. Patient is not in any acute respiratory distress. HEAD AND FACE: Normocephalic EYES: PERRLA, EOMI x 2. EARS: Hearing grossly intact. MOUTH: Oropharynx within normal limits. NECK: Supple, trachea is midline, no adenopathy, no JVD, no carotid bruit. CHEST: Symmetric, no tenderness at palpation LUNGS: Clear to auscultation bilaterally. No wheezing or crackles. CVS: Regular rate and rhythm, S1 and S2 present, no murmurs or gallops appreciated. ABDOMEN: Soft, non-tender. Bowel sounds are normal. No abdominal abnormal pulsations. EXTREMITIES: Full ROM in all major joints, no edema, no cyanosis or clubbing. NEURO: Alert and oriented x 3. No acute neurological deficits. Speech is normal and follows commands. SKIN: Dry and warm Triage Information Reviewed: Yes Vital Signs: Initial Vital Signs Temp 98 F 03/14/18 08:14 Pulse 97 03/14/18 08:14 Resp 16 03/14/18 08:14 BP 120/80 03/14/18 08:14 Pulse Ox 99 03/14/18 08:14 Vital Signs Reviewed: Yes Course/Dx - Course Course Of Treatment: Patient is a 32-year-old female who presents to the urgent care with a chief complaint of having chills. She had one episode of fevers a couple days ago. Patient denies any headache, occasionally neck pain, she denies any photophobia, she denies any chest pain shortness of breath or cough, she denies any nausea vomiting diarrhea or dysuria or urinary frequency. She also denies any ear pain or sore throat. Urinalysis negative for UTI. Rapid strep is negative. At this time since there is no significant findings the patient will be discharged home with follow-up with PCP. Patient was instructed to return to the urgent care or go to the emergency department if the patient continues to have more symptoms such as fevers, neck pain, headache , or any other symptoms. Since the patient doesn't have any meningeal signs I feel comfortable sending the patient home and follow up with the primary care physician. However if the patient develops any other symptoms then she should immediately go to the emergency department for further workup and management. Patient is hemodynamically stable alert and oriented 3. - Differential Dx - Multi-Symptom Provider Diagnoses: Viral syndrome Discharge - Sign-Out/Discharge Documenting (check all that apply): Patient Departure All imaging exams completed and their final reports reviewed: No Studies - Discharge Plan Condition: Stable Disposition: HOME Patient Education Materials: Viral Syndrome (ED) Forms: *Work Release Referrals: Paulo Osei MD [Primary Care Provider] - Additional Instructions: Take Acetaminophen or ibuprofen for pain or fever Increase your fluid intake Return to the or go to the emergency department if symptoms worsen Follow-up with primary care physician in next 2-3 days - Billing Disposition and Condition Condition: STABLE Disposition: Home - Attestation Statements Document Initiated by Eleni: Yes Documenting Scribe: Paul Khan Provider For Whom Eleni is Documenting (Include Credential): Case Urbina MD Scribe Attestation: Paul Cruz, scribed for Case Urbina MD on 03/15/18 at 2136. Scribe Documentation Reviewed: Yes Provider Attestation: The documentation as recorded by the Paul cortes accurately reflects the service I personally performed and the decisions made by me, Case Urbina MD
== END 2018-03-14 09:18 | disposition home or self-care (01) ==
LOC: UCEAST 08:12
DX: B34.9 Viral infection, unspecified (principal); Z88.0 Allergy status to penicillin
CPT/HCPCS: 81003; 87651; 99211; G0463

== ENCOUNTER 2018-11-18 15:12 | Emergency (ER) | payer BC ==
[2018-11-18 15:42] VITALS: BP 128/85
--- NOTE | 2018-12-01 08:29 | UC ---
Throat Pain/Nasal Cooper HPI - HPI Summary HPI Summary: 33-year-old female with sore throat, fever chills over the weekend and today has diarrhea. - History of Current Complaint Chief Complaint: UCRespiratory Stated Complaint: SORE THROAT, AND COUGH Time Seen by Provider: 11/18/18 15:48 Hx Obtained From: Patient Hx Last Menstrual Period: depo ?: No Onset/Duration: Gradual Onset Severity: Mild Pain Intensity: 0 Pain Scale Used: 0-10 Numeric Cough: None Associated Signs & Symptoms: Positive: Nasal Discharge - Allergies/Home Medications Allergies/Adverse Reactions: Allergies Allergy/AdvReac Type Severity Reaction Status Date / Time Penicillins Allergy Mild Rash Verified 11/18/18 15:42 Home Medications: Home Medications Escitalopram Oxalate [Lexapro 10 mg] 10 mg PO DAILY 11/18/18 [History Confirmed 11/18/18] PMH/Surg Hx/FS Hx/Imm Hx Previously Healthy: Yes Other History Of: Negative For: HIV, Hepatitis B, Hepatitis C, Anticoagulant Therapy - Surgical History Surgical History: Yes Surgery Procedure, Year, and Place: app 10/24/17 - Family History Known Family History: Positive: Hypertension Negative: Cardiac Disease, Diabetes, Renal Disease - Social History Alcohol Use: Occasionally Substance Use Type: None Smoking Status (MU): Never Smoked Tobacco - Immunization History Most Recent Influenza Vaccination: 04/21 Most Recent Tetanus Shot: n/a Most Recent Pneumonia Vaccination: n/a Review of Systems All Other Systems Reviewed And Are Negative: Yes Constitutional: Positive: Fever, Chills ENT: Positive: Sore Throat Gastrointestinal: Positive: Diarrhea - 2-3 bouts of diarrhea this morning. Is Patient Immunocompromised?: No Physical Exam Triage Information Reviewed: Yes Appearance: Well-Appearing, No Pain Distress, Well-Nourished Vital Signs: Initial Vital Signs Temp 100.4 F 11/18/18 15:37 Pulse 102 11/18/18 15:37 Resp 18 11/18/18 15:37 BP 128/85 11/18/18 15:37 Pulse Ox 100 11/18/18 15:37 Vital Signs Reviewed: Yes Eyes: Positive: Conjunctiva Clear ENT: Positive: Pharyngeal erythema, Nasal drainage, TMs normal, Uvula midline Neck: Positive: Supple, Nontender, No Lymphadenopathy Respiratory: Positive: Lungs clear, Normal breath sounds, No respiratory distress, No accessory muscle use Cardiovascular: Positive: No Murmur, Pulses Normal, Brisk Capillary Refill, Tachycardia Abdomen Description: Positive: Nontender, No Organomegaly, Soft Bowel Sounds: Positive: Present Throat Pain/Nasal Course/Dx - Course Course Of Treatment: Rapid strep test was negative, patient's increased fluids and rest. She can get [id number] loperamide for treatment of the diarrhea. - Differential Dx/Diagnosis Provider Diagnosis: Pharyngitis, Diarrhea Discharge - Sign-Out/Discharge Documenting (check all that apply): Patient Departure All imaging exams completed and their final reports reviewed: No Studies - Discharge Plan Condition: Fair Disposition: HOME Patient Education Materials: Pharyngitis (ED), Acute Diarrhea (ED) Forms: *Work Release Referrals: Paulo Osei MD [Primary Care Provider] - Additional Instructions: Keep yourself well-hydrated. Follow-up with your primary care provider if no improvement in 2 or 3 days. May take Tylenol every 4 hours for fever or Motrin every 8 hours with food. You can purchase loperamide [id number] for diarrhea and take as directed. - Billing Disposition and Condition Condition: FAIR Disposition: Home
== END 2018-11-18 16:15 | disposition home or self-care (01) ==
LOC: UCEAST 15:12
DX: J02.9 Acute pharyngitis, unspecified (principal); R19.7 Diarrhea, unspecified; Z88.0 Allergy status to penicillin
CPT/HCPCS: 87651; 99211; G0463

== ENCOUNTER 2019-06-01 17:26 | Emergency (ER) | payer BC ==
--- NOTE | 2019-06-01 17:34 | UC ---
Respiratory Complaint HPI - HPI Summary HPI Summary: 33 yo female presents with cough. She tells me that about a month ago she had a "sinus infection" and was placed on a zpak and had good resolution of her symptoms. Over the last 5-6 days has had a dry irritating cough that is worse in the cold air. She denies a hx of asthma, but has used an inhaler in the past with good relief of similar symptoms. She has been taking OTC allergy medication with no change. She does not smoke. Denies fever, chills, sore throat , SOB, rash, chest pain. - History of Current Complaint Stated Complaint: COUGH Time Seen by Provider: 06/01/19 17:33 Hx Obtained From: Patient Hx Last Menstrual Period: depo Onset/Duration: Gradual Onset Severity Initially: Mild Severity Currently: Mild Pain Intensity: 4 Pain Scale Used: 0-10 Numeric Character: Cough: Nonproductive - Allergies/Home Medications Allergies/Adverse Reactions: Allergies Allergy/AdvReac Type Severity Reaction Status Date / Time Penicillins Allergy Mild Rash Verified 06/01/19 17:35 PMH/Surg Hx/FS Hx/Imm Hx Endocrine History: Hypothyroidism Psychological History: Anxiety Other History Of: Negative For: HIV, Hepatitis B, Hepatitis C, Anticoagulant Therapy - Surgical History Surgical History: Yes Surgery Procedure, Year, and Place: [facility] 10/24/17 - Family History Known Family History: Positive: Hypertension Negative: Cardiac Disease, Diabetes, Renal Disease - Social History Occupation: Employed Full-time Lives: With Family Alcohol Use: Occasionally Substance Use Type: None Smoking Status (MU): Never Smoked Tobacco - Immunization History Most Recent Influenza Vaccination: 04/21 Most Recent Tetanus Shot: n/a Most Recent Pneumonia Vaccination: n/a Review of Systems All Other Systems Reviewed And Are Negative: No Constitutional: Positive: Negative Skin: Positive: Negative Eyes: Positive: Negative ENT: Positive: Negative Respiratory: Positive: Cough Cardiovascular: Positive: Negative Gastrointestinal: Positive: Negative Psychological: Positive: Negative Physical Exam - Summary Physical Exam Summary: GENERAL: NAD. WDWN. No pain distress. SKIN: No rashes, sores, lesions, or open wounds. HEENT: Head: AT/NC Eyes: EOM intact. Conjunctiva clear without inflammation or discharge. Ears: Hearing grossly normal. TMs intact, no bulging, erythema, or edema. Nose: Nasal mucosa pink and moist. NTTP maxillary and frontal sinus. Throat: Posterior oropharynx without exudates, erythema, or tonsillar enlargement. Uvula midline. NECK: Supple. Nontender. No lymphadenopathy. CHEST: CTAB. No accessory muscle use. Breathing comfortably and in no distress. CV: RRR. Pulses intact. Cap refill <2seconds NEURO: Alert. PSYCH: Age appropriate behavior. Triage Information Reviewed: Yes Vital Signs: Vital Signs: Temp Pulse Resp BP Pulse Ox 99.2 F 105 16 123/81 99 06/01/19 17:33 06/01/19 17:33 06/01/19 17:33 06/01/19 17:33 06/01/19 17:33 Vital Signs Reviewed: Yes Diagnostics - Radiology CXR Radiology Interpretation Completed By: ED Physician Summary of Radiographic Findings: No PNA Respiratory Course/Dx - Course Course Of Treatment: CXR wet read negative. Discussed viral vs bacterial causes with pt and she prefers to be on anbx at this time. Given her recent use of zpak will rx for doxycycline, albuterol, and tessalon. Advised to be rechecked by PCP if symptoms do not improve within 1 week - Differential Dx/Diagnosis Provider Diagnosis: Cough Discharge ED - Sign-Out/Discharge Documenting (check all that apply): Patient Departure All imaging exams completed and their final reports reviewed: No - Discharge Plan Condition: Stable Disposition: HOME Prescriptions: Albuterol HFA INHALER* [Ventolin HFA Inhaler*] 1 puff INH Q6H PRN #1 mdi PRN Reason: Wheezing Benzonatate CAP* [Tessalon 100 MG CAP*] 100 mg PO TID PRN #21 cap PRN Reason: Cough DOXYcycline CAP(*) [DOXYcycline 100MG CAP(*)] 100 mg PO BID #14 cap Patient Education Materials: Acute Cough (ED) Forms: *Work Release Referrals: Paulo Osei MD [Primary Care Provider] - Additional Instructions: If you develop a fever, shortness of breath, chest pain, new or worsening symptoms - please call your PCP or go to the ED immediately. - Billing Disposition and Condition Condition: STABLE Disposition: Home
[2019-06-01 17:35] VITALS: BP 123/81
[2019-06-01] MEDS ORDERED: Albuterol HFA INHALER* 8 gm MDI INH ONE (17:44)
[2019-06-01] MEDS ORDERED: DOXYcycline CAP(*) 100 MG PO ONE (17:58)
--- NOTE | 2019-06-02 08:35 | UC ---
- Progress Note Progress Note: Final x-ray report reviewed. IMPRESSION: NO EVIDENCE FOR ACTIVE CARDIOPULMONARY DISEASE. Consistent with provider reading. No change in plan of care. Course/Dx - Diagnoses Provider Diagnoses: Cough Discharge ED - Sign-Out/Discharge Documenting (check all that apply): Patient Departure All imaging exams completed and their final reports reviewed: Yes - Discharge Plan Condition: Stable Disposition: HOME Prescriptions: Albuterol HFA INHALER* [Ventolin HFA Inhaler*] 1 puff INH Q6H PRN #1 mdi PRN Reason: Wheezing Benzonatate CAP* [Tessalon 100 MG CAP*] 100 mg PO TID PRN #21 cap PRN Reason: Cough DOXYcycline CAP(*) [DOXYcycline 100MG CAP(*)] 100 mg PO BID #14 cap Patient Education Materials: Acute Cough (ED) Forms: *Work Release Referrals: Paulo Osei MD [Primary Care Provider] - Additional Instructions: If you develop a fever, shortness of breath, chest pain, new or worsening symptoms - please call your PCP or go to the ED immediately. - Billing Disposition and Condition Condition: STABLE Disposition: Home
== END 2019-06-01 18:17 | disposition home or self-care (01) ==
LOC: UCEAST 17:26
DX: R05 Cough (principal); Z88.0 Allergy status to penicillin
CPT/HCPCS: 71046; 99212; A9270-GY; G0463